=== PATIENT | female | born 1955 | race Caucasian/White ===

== ENCOUNTER → 2018-10-31 | Outpatient (CLI) | payer MEDICARE ==
[~2018-10-31] MED LIST: OMNIPAQUE 350 MG/ML, 100ML BOTTLE ONE
== END | disposition home or self-care (01) ==
LOC: CFH 13:24
PROVIDERS: ATTEND Surgery
DX: K43.2 Incisional hernia without obstruction or gangrene (principal)
CPT/HCPCS: 74177; Q9967

== ENCOUNTER → 2020-06-12 | Outpatient (CLI) | payer MEDICARE ==
[~2020-06-12] MED LIST changes: +CITA40TA5 PO; +ESTR1TAB15 PO; +LEVO112T4 PO; +LORA-446 PO; +MELO15TA24 PO; -OMNIPAQUE 350 MG/ML, 100ML BOTTLE ONE; +PREG100C PO; +TRAM50TA2 PO; +TRAZ-175 PO; +ZOLP10TA PO
[2020-06-12 12:19] LABS: BASOPHILS # (AUTO) 0.04 x10^3/uL (0-0.1); BASOPHILS % (AUTO) 1 % (0-1); EOSINOPHILS # (AUTO) 0.13 x10^3/uL (0-0.4); EOSINOPHILS % (AUTO) 2 % (1-7); LYMPHOCYTES % (AUTO) 24 % (22-44); MD NO; MEAN CORPUSCULAR HEMOGLOBIN 31.7 pg (27.0-34.8); MEAN PLATELET VOLUME 8.6 fL (7.4-10.4); MONOCYTES # (AUTO) 0.42 x10^3/uL (0.2-0.8); MONOCYTES % (AUTO) 8 % (2-9); NEUTROPHILS # (AUTO) 3.56 x10^3/uL (1.8-6.8); NEUTROPHILS % (AUTO) 65 % (42-75); PLATELET COUNT 207 x10^3/uL (130-400); RED BLOOD COUNT 4.21 x10^6/uL (3.82-5.3); RED CELL DISTRIBUTION WIDTH 13.9 % (9.6-15.2)
[2020-06-12 12:31] LABS: ALANINE AMINOTRANSFERASE 27 U/L (12-78); ALBUMIN 3.3 g/dL (3.4-5.0); ANION GAP 3 mmol/L (5-15); CALCIUM 9.6 mg/dL (8.5-10.1); CHLORIDE 114 mmol/L (98-107); CREATININE 0.81 mg/dL (0.55-1.02)
[2020-06-12 12:34] LABS: ALKALINE PHOSPHATASE 55 U/L (45-117); BILIRUBIN,TOTAL 0.4 mg/dL (0.2-1.0); TOTAL PROTEIN 6.3 g/dL (6.4-8.2)
== END | disposition home or self-care (01) ==
LOC: STAR 11:01
PROVIDERS: ATTEND Orthopaedic Surgery
DX: Z01.818 Encounter for other preprocedural examination (principal); M16.12 Unilateral primary osteoarthritis, left hip
CPT/HCPCS: 36415; 80053; 85025; 87081; 93005

== ENCOUNTER → 2020-06-19 | Outpatient (CLI) | payer MEDICARE | END | disposition home or self-care (01) | LOC: STAR 11:35 | PROVIDERS: ATTEND Anesthesiology | DX: Z01.812 Encounter for preprocedural laboratory examination (principal); Z20.828 Contact with and (suspected) exposure to other viral communicable diseases | CPT/HCPCS: 36415; 87635 ==

== ENCOUNTER 2020-06-23 10:56 | Observation (INO) | payer MEDICARE ==
[~2020-06-23] VITALS: Ht 154.9 cm; Wt 81.9 kg
[~2020-06-23 10:56] MED LIST changes: +EPINEPHRINE 1 MG/ML, 1ML ONE; +KETOROLAC 60 MG/2 ML ONE; +ROPIvacaine/PF 0.2%, 20 ML ONE; +SODIUM CHLORIDE 0.9% 50 ML ONE; +TRANEXAMIC ACID 100 MG/ML, 10ML ONE; +VANCOMYCIN 1,000 MG ONE
[2020-06-23] MEDS ORDERED: LACTATED RINGERS 1,000 ML IV SCH (11:26)
[2020-06-23] MEDS ORDERED: CHLORHEXIDINE 15 ML UDC MM ONE (11:30)
[2020-06-23] MEDS ORDERED: LIDOCAINE-MPF 1%, 2ML ONE (11:57)
[2020-06-23] MEDS ORDERED: LIDOCAINE-MPF 1%, 2ML INFIL ONE (12:30)
[2020-06-23] MEDS ORDERED: MIDAZOLAM 1 MG/ML, 2ML ONE (13:26)
[2020-06-23] MEDS ORDERED: FENTANYL PF 250 MCG/5ML ONE ×2 (13:26→14:44)
[2020-06-23] MEDS ORDERED: MEPERIDINE/PF 25MG/0.5ML IVPush PRN (13:30)
[2020-06-23] MEDS ORDERED: METHOCARBAMOL 1,000 MG in DEXTROSE 5% 100 ML IV PRN (13:30)
[2020-06-23] MEDS ORDERED: LABETALOL 5MG/ML, 20ML IV PRN (13:30)
[2020-06-23] MEDS ORDERED: ALBUTEROL SULFATE 2.5 MG/3 ML NPPB PRN (13:30)
[2020-06-23] MEDS ORDERED: MIDAZOLAM 1 MG/ML, 2ML IV PRN (13:30)
[2020-06-23] MEDS ORDERED: DIAZEPAM 5 MG/ML, 2ML IVPush PRN (13:30)
[2020-06-23] MEDS ORDERED: ONDANSETRON 2MG/ML, 2ML IVPush PRN (13:30)
[2020-06-23] MEDS ORDERED: hydrALAzine 20 MG/ML, 1ML IV PRN (13:30)
[2020-06-23] MEDS ORDERED: PROMETHAZINE 25 MG/ML, 1ML IVPush PRN (13:30)
[2020-06-23] MEDS ORDERED: EPHEDRINE 50 MG/ML, 1ML IM PRN (13:30)
[2020-06-23] MEDS ORDERED: EPHEDRINE 50 MG/ML, 1ML IVPush PRN (13:30)
[2020-06-23] MEDS ORDERED: ACETAMINOPHEN 325 MG TABLET PO PRN (13:30)
[2020-06-23] MEDS ORDERED: OXYcodone 5 MG/5 ML ORAL.SOL UDC PO PRN (13:30)
[2020-06-23] MEDS ORDERED: DIPHENHYDRAMINE 50 MG/ML, 1ML IVPush PRN ×3 (13:30→16:00)
[2020-06-23] MEDS ORDERED: PROPOFOL 50 ML ONE (14:30)
[2020-06-23] MEDS ORDERED: ONDANSETRON 2MG/ML, 2ML ONE (14:43)
[2020-06-23] MEDS ORDERED: ROCURONIUM 10MG/ML,5ML ONE (14:43)
[2020-06-23] MEDS ORDERED: SUCCINYLCHOLINE 20 MG/ML, 10ML ONE (14:43)
[2020-06-23] MEDS ORDERED: NEOSTIGMINE 1 MG/ML, 10ML ONE (14:43)
[2020-06-23] MEDS ORDERED: CEFAZOLIN 1,000 MG ONE (14:43)
[2020-06-23] MEDS ORDERED: DEXAMETHASONE 4 MG/ML, 1ML ONE (14:43)
[2020-06-23] MEDS ORDERED: PROPOFOL 10 MG/ML, 20ML ONE (14:43)
[2020-06-23] MEDS ORDERED: GLYCOPYRROLATE 0.2MG/1ML, 5ML ONE (14:43)
[2020-06-23] MEDS ORDERED: FENTANYL PF 100 MCG/2ML ONE ×2 (15:38→16:02)
[2020-06-23] MEDS ORDERED: MEPERIDINE/PF 25MG/ML,1ML ONE (15:39)
[2020-06-23] MEDS: FENTANYL PF 100 MCG/2ML IV PRN ×4 (15:46→16:29)
[2020-06-23] MEDS ORDERED: TRANEXAMIC ACID 1,000 MG in SODIUM CHLORIDE 0.9% 100 ML IVPB ONE (16:00)
[2020-06-23] MEDS: KETOROLAC 30 MG/1 ML IV SCH (16:00)
[2020-06-23] MEDS: ACETAMINOPHEN 500 MG TABLET PO SCH ×2 (16:00→21:25)
[2020-06-23] MEDS ORDERED: SENNA/DOCUSATE TABLET PO PRN (16:00)
[2020-06-23] MEDS ORDERED: PROMETHAZINE 25 MG/ML, 1ML IM PRN (16:00)
[2020-06-23] MEDS ORDERED: HYDROmorphone 2MG TABLET PO PRN (16:00)
[2020-06-23] MEDS ORDERED: POLYETHYLENE GLYCOL 17 GM PACKET PO PRN (16:00)
[2020-06-23] MEDS ORDERED: ALUMINUM/MAG/SIMETHICONE 30 ML UDC PO PRN (16:00)
[2020-06-23] MEDS ORDERED: MAGNESIUM HYDROXIDE 8%, 30ML UDC PO PRN (16:00)
[2020-06-23] MEDS ORDERED: BISACODYL 10 MG SUPP PR PRN (16:00)
[2020-06-23] MEDS ORDERED: ONDANSETRON 4 MG TABLET PO PRN (16:00)
[2020-06-23] MEDS ORDERED: PROMETHAZINE 12.5 MG SUPP PR PRN (16:00)
[2020-06-23] MEDS ORDERED: ONDANSETRON 2MG/ML, 2ML IV PRN (16:00)
[2020-06-23] MEDS ORDERED: DIPHENHYDRAMINE 50 MG CAPSULE PO PRN (16:00)
[2020-06-23] MEDS ORDERED: PSYLLIUM PACKET PO PRN (16:00)
[2020-06-23] MEDS ORDERED: HYDROmorphone 1 MG/ML, 1ML INJ IVPush PRN (16:00)
[2020-06-23] MEDS ORDERED: HYDROmorphone 2 MG/ML, 1ML ONE (16:03)
[2020-06-23] MEDS ORDERED: OXYcodone 5 MG/5 ML ORAL.SOL UDC ONE (16:03)
[2020-06-23] MEDS: HYDROmorphone 1 MG/ML, 1ML INJ IVPush PRN ×3 (16:11→16:35)
[2020-06-23] MEDS ORDERED: KETOROLAC 30 MG/1 ML ONE (16:21)
[2020-06-23] MEDS ORDERED: ZOLPIDEM 10MG TABLET PO PRN (18:30)
[2020-06-23] MEDS ORDERED: PREGABALIN 100 MG CAPSULE ONE (18:32)
[2020-06-23] MEDS: PREGABALIN 100 MG CAPSULE PO SCH (18:33)
[2020-06-23] MEDS ORDERED: TAMSULOSIN 0.4 MG CAP.ER.24H PO ONE (19:00)
[2020-06-23 19:16] VITALS: BP 99/66
[2020-06-23] MEDS: SODIUM CHLORIDE 0.9% 1,000 ML IV SCH (20:00)
[2020-06-23] MEDS ORDERED: PREGABALIN 100 MG CAPSULE PO SCH ×2 (21:00)
[2020-06-23] MEDS: DOCUSATE 100 MG CAPSULE PO SCH (21:00)
[2020-06-23] MEDS ORDERED: CITALOPRAM 20 MG TABLET ONE (21:24)
[2020-06-23] MEDS: ASPIRIN 81 MG TABLET EC PO SCH (21:26)
[2020-06-23] MEDS: OXYcodone IR 5MG TABLET PO PRN (21:26)
[2020-06-23] MEDS: CEFAZOLIN PMX 1GM/50ML 50 ML IVPB SCH (21:27)
[2020-06-23] MEDS ORDERED: CITALOPRAM 20 MG TABLET PO SCH (21:30)
[2020-06-24 00:07] VITALS: BP 106/71
[2020-06-24] MEDS: KETOROLAC 30 MG/1 ML IV SCH ×2 (02:01→08:19)
[2020-06-24] MEDS: OXYcodone IR 5MG TABLET PO PRN ×3 (02:07→12:20)
[2020-06-24 04:16] VITALS: BP 96/50
[2020-06-24] MEDS ORDERED: LEVOTHYROXINE 112 MCG TABLET PO SCH (06:00)
[2020-06-24] MEDS ORDERED: DEXAMETHASONE 4 MG/ML, 1ML IVPush SCH (06:00)
[2020-06-24] MEDS: ACETAMINOPHEN 500 MG TABLET PO SCH ×2 (06:03→08:20)
[2020-06-24] MEDS: CEFAZOLIN PMX 1GM/50ML 50 ML IVPB SCH (06:03)
[2020-06-24] MEDS ORDERED: LORazepam 1MG TABLET PO PRN (06:30)
[2020-06-24 07:49] VITALS: BP 107/69
[2020-06-24] MEDS: ASPIRIN 81 MG TABLET EC PO SCH (08:20)
[2020-06-24] MEDS: DOCUSATE 100 MG CAPSULE PO SCH ×2 (08:20→08:25)
[2020-06-24] MEDS: PREGABALIN 100 MG CAPSULE PO SCH (08:20)
[2020-06-24] MEDS: SODIUM CHLORIDE 0.9% 1,000 ML IV SCH (08:20)
[2020-06-24] MEDS ORDERED: CITALOPRAM 20 MG TABLET PO SCH (09:00)
[2020-06-24 13:07] VITALS: BP 119/58
== END 2020-06-24 13:35 | disposition home or self-care (01) ==
LOC: OUT 10:56 → ORIP 15:37 → 4NE 17:47 → DCLOUNGE 06-24 13:25
PROVIDERS: ADMIT Orthopaedic Surgery; ATTEND Orthopaedic Surgery
DX: M16.12 Unilateral primary osteoarthritis, left hip (principal); M81.0 Age-related osteoporosis without current pathological fracture; G89.29 Other chronic pain; M54.5 Low back pain; Z96.642 Presence of left artificial hip joint; Z91.040 Latex allergy status; Z79.899 Other long term (current) drug therapy; Z90.710 Acquired absence of both cervix and uterus
CPT/HCPCS: 27130; 36415; 72170; 85014; 85018; 86850; 86900; 96361; 96365; 96366; 96375; 96376; 97162; C1713; C1776; G0378; J0171; J0330; J0690; J1100; J1170; J1885; J2175; J2250; J2405; J2704; J2710; J2795; J2800; J3010; J7030; J7120; J3370

== ENCOUNTER → 2020-11-20 | Outpatient (CLI) | payer MEDICARE ==
[~2020-11-20] MED LIST changes: -EPINEPHRINE 1 MG/ML, 1ML ONE; -KETOROLAC 60 MG/2 ML ONE; -ROPIvacaine/PF 0.2%, 20 ML ONE; -SODIUM CHLORIDE 0.9% 50 ML ONE; -TRANEXAMIC ACID 100 MG/ML, 10ML ONE; -VANCOMYCIN 1,000 MG ONE
== END | disposition home or self-care (01) ==
LOC: RAD 08:04
PROVIDERS: ATTEND Surgery
DX: R10.9 Unspecified abdominal pain (principal)
CPT/HCPCS: 74240; 74248

== ENCOUNTER → 2021-01-29 | Outpatient (CLI) | payer MEDICARE | END | disposition home or self-care (01) | LOC: STAR 10:58 | PROVIDERS: ATTEND Surgery | DX: Z01.818 Encounter for other preprocedural examination (principal); R94.31 Abnormal electrocardiogram [ECG] [EKG]; I49.3 Ventricular premature depolarization; Z20.822 Contact with and (suspected) exposure to COVID-19 | CPT/HCPCS: 93005; U0003 ==

== ENCOUNTER 2021-02-04 08:19 | Inpatient (IN) | payer MEDICARE ==
[~2021-02-04] VITALS: Ht 154.9 cm; Wt 66.9 kg
[2021-02-04] MEDS ORDERED: CHLORHEXIDINE 15 ML UDC PO ONE (09:00)
[2021-02-04] MEDS ORDERED: LACTATED RINGERS 1,000 ML IV SCH (10:00)
[2021-02-04] MEDS ORDERED: BUPIVACAINE/PF 0.5% ONE (10:53)
[2021-02-04] MEDS ORDERED: MIDAZOLAM 1 MG/ML, 2ML ONE (11:45)
[2021-02-04] MEDS ORDERED: FENTANYL PF 100 MCG/2ML ONE ×5 (11:45→14:19)
[2021-02-04] MEDS ORDERED: DEXAMETHASONE 4 MG/ML, 1ML ONE (11:53)
[2021-02-04] MEDS ORDERED: NEOSTIGMINE 1 MG/ML, 10ML ONE (11:53)
[2021-02-04] MEDS ORDERED: GLYCOPYRROLATE 0.2MG/1ML, 5ML ONE (11:53)
[2021-02-04] MEDS ORDERED: SUCCINYLCHOLINE 20 MG/ML, 10ML ONE (11:53)
[2021-02-04] MEDS ORDERED: ONDANSETRON 2MG/ML, 2ML ONE (11:53)
[2021-02-04] MEDS ORDERED: ROCURONIUM 10MG/ML,5ML ONE (11:53)
[2021-02-04] MEDS ORDERED: PROPOFOL 10 MG/ML, 20ML ONE (11:53)
[2021-02-04] MEDS ORDERED: CEFAZOLIN 1,000 MG ONE (11:53)
[2021-02-04] MEDS ORDERED: ONDANSETRON 2MG/ML, 2ML IVPush PRN (12:30)
[2021-02-04] MEDS ORDERED: ACETAMINOPHEN 325 MG TABLET PO PRN (12:30)
[2021-02-04] MEDS ORDERED: PROMETHAZINE 25 MG/ML, 1ML IVPush PRN (12:30)
[2021-02-04] MEDS ORDERED: PROMETHAZINE 25 MG SUPP PR PRN (12:30)
[2021-02-04] MEDS ORDERED: LORazepam 2 MG/ML, 1ML IVPush PRN ×2 (12:30→16:30)
[2021-02-04] MEDS ORDERED: METHOCARBAMOL 1,000 MG in DEXTROSE 5% 100 ML IV PRN (12:30)
[2021-02-04] MEDS ORDERED: HYDROmorphone 1 MG/ML, 1ML INJ IVPush PRN (12:30)
[2021-02-04] MEDS ORDERED: OXYcodone 5 MG/5 ML ORAL.SOL UDC PO PRN (12:30)
[2021-02-04] MEDS ORDERED: MEPERIDINE/PF 25MG/ML,1ML ONE (13:49)
[2021-02-04] MEDS ORDERED: ZOLPIDEM 10MG TABLET PO PRN (14:00)
[2021-02-04] MEDS ORDERED: MEPERIDINE/PF 25MG/0.5ML IVPush PRN (14:00)
[2021-02-04] MEDS: FENTANYL PF 100 MCG/2ML IV PRN ×4 (14:02→14:31)
[2021-02-04] MEDS ORDERED: OXYcodone 5 MG/5 ML ORAL.SOL UDC ONE (14:10)
[2021-02-04] MEDS: ACETAMINOPHEN 100 ML IVPB PRN (15:21)
[2021-02-04] MEDS ORDERED: LORazepam 1MG TABLET PO PRN (16:30)
[2021-02-04] MEDS ORDERED: DEXAMETHASONE 4 MG/ML, 1ML IVPush PRN (16:30)
[2021-02-04] MEDS ORDERED: SCOPOLAMINE PATCH, 1.5MG PATCH.TD72 TD PRN (16:30)
[2021-02-04] MEDS ORDERED: ONDANSETRON 2MG/ML, 2ML IV PRN (16:30)
[2021-02-04] MEDS ORDERED: DIPHENHYDRAMINE 25 MG CAPSULE PO PRN (16:30)
[2021-02-04] MEDS ORDERED: HALOPERIDOL 5 MG/ML IVPush PRN (16:30)
[2021-02-04] MEDS ORDERED: CALCIUM CARBONATE 500 MG TAB.CHEW PO PRN (16:30)
[2021-02-04] MEDS ORDERED: DIPHENHYDRAMINE 50 MG/ML, 1ML IVPush PRN (16:30)
[2021-02-04] MEDS: OXYcodone IR 5MG TABLET PO PRN ×2 (17:26→21:29)
[2021-02-04] MEDS: D5%-0.45NACL+KCL 20MEQ 1,000 ML IV SCH (17:26)
[2021-02-04] MEDS: PREGABALIN 100 MG CAPSULE PO SCH ×2 (17:26→21:29)
[2021-02-04 19:07] VITALS: BP 125/72
[2021-02-04 23:24] VITALS: BP 116/55
[2021-02-05] MEDS: ACETAMINOPHEN 100 ML IVPB PRN (02:08)
[2021-02-05 03:18] LABS: BASOPHILS % (AUTO) 0 % (0-1); EOSINOPHILS % (AUTO) 0 % (1-7); LYMPHOCYTES % (AUTO) 10 % (22-44); MEAN CORPUSCULAR HEMOGLOBIN 31.6 pg (27.0-34.8); MEAN CORPUSCULAR HGB CONC 33.3 g/dL (32.4-35.8); MEAN PLATELET VOLUME 9.5 fL (7.4-10.4); MONOCYTES % (AUTO) 10 % (2-9); NEUTROPHILS % (AUTO) 80 % (42-75); PLATELET COUNT 157 x10^3/uL (130-400); RED BLOOD COUNT 3.52 x10^6/uL (3.82-5.3); RED CELL DISTRIBUTION WIDTH 13.4 % (9.6-15.2)
[2021-02-05 03:19] LABS: MD NO
[2021-02-05 03:34] LABS: ANION GAP 2 mmol/L (5-15); CALCIUM 8.4 mg/dL (8.5-10.1); CHLORIDE 110 mmol/L (98-107)
[2021-02-05 03:35] LABS: CREATININE 0.88 mg/dL (0.55-1.02)
[2021-02-05 04:16] VITALS: BP 115/54
[2021-02-05] MEDS: OXYcodone IR 5MG TABLET PO PRN ×3 (04:41→19:06)
[2021-02-05] MEDS: LEVOTHYROXINE 112 MCG TABLET PO SCH (05:57)
[2021-02-05] MEDS: D5%-0.45NACL+KCL 20MEQ 1,000 ML IV SCH ×2 (05:59→21:06)
[2021-02-05 06:53] VITALS: BP 98/55
[2021-02-05] MEDS: HYDROmorphone 1 MG/ML, 1ML INJ IVPush PRN (08:22)
[2021-02-05] MEDS: ENOXAPARIN 40 MG/0.4 ML SQ SCH (08:23)
[2021-02-05] MEDS: CITALOPRAM 20 MG TABLET PO SCH (08:26)
[2021-02-05] MEDS: ESTRADIOL 1 MG TABLET PO SCH (08:26)
[2021-02-05] MEDS: PREGABALIN 100 MG CAPSULE PO SCH ×3 (08:26→21:05)
[2021-02-05] MEDS ORDERED: LEVOTHYROXINE 112 MCG TABLET PO SCH (09:00)
[2021-02-05] MEDS ORDERED: MELOXICAM 15 MG TABLET PO SCH (09:00)
[2021-02-05 12:34] VITALS: BP 96/52
[2021-02-05] MEDS: ACETAMINOPHEN 500 MG TABLET PO SCH ×2 (15:19→21:05)
[2021-02-05 19:49] VITALS: BP 106/51
[2021-02-05] MEDS: DOCUSATE 100 MG CAPSULE PO SCH (20:55)
[2021-02-05] MEDS: TRAZODONE 100MG TABLET PO PRN (23:23)
[2021-02-06] MEDS: OXYcodone IR 5MG TABLET PO PRN ×4 (02:19→21:16)
[2021-02-06 02:20] VITALS: BP 112/51
[2021-02-06] MEDS: ACETAMINOPHEN 500 MG TABLET PO SCH ×4 (03:03→21:16)
[2021-02-06] MEDS: HYDROmorphone 1 MG/ML, 1ML INJ IVPush PRN (03:43)
[2021-02-06 04:48] LABS: BASOPHILS % (AUTO) 1 % (0-1); EOSINOPHILS % (AUTO) 2 % (1-7); LYMPHOCYTES % (AUTO) 29 % (22-44); MEAN CORPUSCULAR HEMOGLOBIN 31.5 pg (27.0-34.8); MEAN CORPUSCULAR HGB CONC 33.4 g/dL (32.4-35.8); MEAN PLATELET VOLUME 9.9 fL (7.4-10.4); MONOCYTES % (AUTO) 10 % (2-9); NEUTROPHILS % (AUTO) 59 % (42-75); PLATELET COUNT 135 x10^3/uL (130-400); RED BLOOD COUNT 3.25 x10^6/uL (3.82-5.3); RED CELL DISTRIBUTION WIDTH 13.4 % (9.6-15.2)
[2021-02-06 04:49] LABS: MD NO
[2021-02-06] MEDS: LEVOTHYROXINE 112 MCG TABLET PO SCH (06:06)
[2021-02-06] MEDS ORDERED: OXYC1TAB14 PO (07:02)
[2021-02-06 07:05] LABS: ANION GAP 4 mmol/L (5-15); CALCIUM 8.2 mg/dL (8.5-10.1); CHLORIDE 107 mmol/L (98-107); CREATININE 0.67 mg/dL (0.55-1.02)
[2021-02-06 07:12] VITALS: BP 98/61
[2021-02-06] MEDS: DOCUSATE 100 MG CAPSULE PO SCH ×2 (07:53→21:00)
[2021-02-06] MEDS: PREGABALIN 100 MG CAPSULE PO SCH ×3 (07:54→21:17)
[2021-02-06] MEDS: ESTRADIOL 1 MG TABLET PO SCH (07:54)
[2021-02-06] MEDS: CITALOPRAM 20 MG TABLET PO SCH (07:55)
[2021-02-06] MEDS: ENOXAPARIN 40 MG/0.4 ML SQ SCH (07:56)
[2021-02-06] MEDS: D5%-0.45NACL+KCL 20MEQ 1,000 ML IV SCH (09:37)
[2021-02-06 12:09] VITALS: BP_SYST 78; BP_SYST 84; BP_DIAS 48; BP_DIAS 52
[2021-02-06 18:19] VITALS: BP 90/52
[2021-02-06 20:05] VITALS: BP 101/58
[2021-02-06] MEDS: TRAZODONE 100MG TABLET PO PRN (23:55)
[2021-02-07 00:01] VITALS: BP 96/49
[2021-02-07] MEDS: D5%-0.45NACL+KCL 20MEQ 1,000 ML IV SCH (01:42)
[2021-02-07] MEDS: ACETAMINOPHEN 500 MG TABLET PO SCH ×2 (03:00→07:56)
[2021-02-07 03:30] LABS: ANION GAP 5 mmol/L (5-15); CALCIUM 8.4 mg/dL (8.5-10.1); CHLORIDE 109 mmol/L (98-107); CREATININE 0.63 mg/dL (0.55-1.02)
[2021-02-07 03:31] LABS: BASOPHILS % (AUTO) 1 % (0-1); EOSINOPHILS % (AUTO) 3 % (1-7); LYMPHOCYTES % (AUTO) 20 % (22-44); MEAN CORPUSCULAR HEMOGLOBIN 31.7 pg (27.0-34.8); MEAN CORPUSCULAR HGB CONC 33.5 g/dL (32.4-35.8); MEAN PLATELET VOLUME 10.1 fL (7.4-10.4); MONOCYTES % (AUTO) 9 % (2-9); NEUTROPHILS % (AUTO) 68 % (42-75); PLATELET COUNT 145 x10^3/uL (130-400); RED BLOOD COUNT 3.34 x10^6/uL (3.82-5.3); RED CELL DISTRIBUTION WIDTH 13.3 % (9.6-15.2)
[2021-02-07 03:34] LABS: MD NO
[2021-02-07] MEDS: LEVOTHYROXINE 112 MCG TABLET PO SCH (06:18)
[2021-02-07 06:22] VITALS: BP 125/63
[2021-02-07] MEDS: OXYcodone IR 5MG TABLET PO PRN ×2 (06:28→13:21)
[2021-02-07 06:52] VITALS: BP 96/64
[2021-02-07] MEDS: DOCUSATE 100 MG CAPSULE PO SCH (07:57)
[2021-02-07] MEDS: PREGABALIN 100 MG CAPSULE PO SCH (07:57)
[2021-02-07] MEDS: ESTRADIOL 1 MG TABLET PO SCH (07:57)
[2021-02-07] MEDS: ENOXAPARIN 40 MG/0.4 ML SQ SCH (07:57)
[2021-02-07] MEDS: CITALOPRAM 20 MG TABLET PO SCH (07:57)
[2021-02-07] MEDS ORDERED: ONDANSETRON ODT 8 MG PO PRN (11:00)
[2021-02-07 14:26] VITALS: BP 113/74
== END 2021-02-07 20:17 | disposition home or self-care (01) | DRG 331 ==
LOC: OUT 08:19 → 4NE 15:03
PROVIDERS: ADMIT Surgery; ATTEND Surgery
PROC: 0DTN4ZZ Resection of Sigmoid Colon, Percutaneous Endoscopic Approach (ICD-10-PCS; 2021-02-04)
PROC: 0DN84ZZ Release Small Intestine, Percutaneous Endoscopic Approach (ICD-10-PCS; principal; 2021-02-04 10:30)
DX: K56.51 Intestinal adhesions [bands], with partial obstruction (principal); G89.29 Other chronic pain; G89.18 Other acute postprocedural pain; Z91.040 Latex allergy status
CPT/HCPCS: 36415; 80048; 83735; 85025; 88307; G0378; J0131; J0690; J1100; J1170; J1650; J2175; J2250; J2405; J2704; J2710; J3010; J0330; J2800; J3480; J7120